=== PATIENT | male | born 1965 | race Caucasian/White ===

== ENCOUNTER 2018-07-12 10:21 | Emergency (ER) | payer SELFPAY ==
[~2018-07-12] VITALS: Ht 180.3 cm; Wt 91.8 kg
[2018-07-12 11:36] VITALS: BP 131/90
== END 2018-07-12 11:47 | disposition home or self-care (01) ==
LOC: EMS 10:22
DX: R00.2 Palpitations (principal)
CPT/HCPCS: 93005